=== PATIENT | female | born 1995 | race Hispanic/Latino ===

== ENCOUNTER 2019-07-23 12:33 | Emergency (ER) | payer BC ==
[2019-07-23 15:02] LABS: APPEARANCE,URINE Clear (CLEAR); BILIRUBIN,URINE Negative (NEGATIVE); COLOR,URINE Yellow (YELLOW); GLUCOSE, URINE (UA) Negative (NEGATIVE); KETONES,URINE Negative (NEGATIVE); LEUKOCYTE ESTERASE ,URINE Negative (NEGATIVE); NITRATE,URINE Negative (NEGATIVE); OCCULT BLOOD,URINE Negative (NEGATIVE); PH,URINE 5.5 (5.0-8.0); PROTEIN,URINE Negative (NEGATIVE); UROBILINOGEN,URINE 0.2 mg/dL (0.2-1.0)
[2019-07-23 15:05] LABS: HCG,QUAL RESULT NEGATIVE (NEGATIVE)
[2019-07-23] MEDS ORDERED: IBUPROFEN 600 MG TABLET ONE (16:16)
== END 2019-07-23 16:37 | disposition home or self-care (01) ==
LOC: EDH 12:33
DX: M54.2 Cervicalgia (principal); V49.49XA Driver injured in collision with other motor vehicles in traffic accident, initial encounter; Y93.89 Activity, other specified; Y92.89 Other specified places as the place of occurrence of the external cause; Y99.8 Other external cause status
CPT/HCPCS: 72040; 81003; 81025

== ENCOUNTER 2023-12-24 23:02 | Emergency (ER) | payer BC, MEDICAID ==
[~2023-12-24] VITALS: Ht 154.9 cm; Wt 68.0 kg
[2023-12-25 02:53] LABS: HCG,QUALITATIVE URINE NEGATIVE (NEGATIVE)
[2023-12-25 02:54] VITALS: BP 121/68; PULSE 66; RESP 18; O2SAT 100
[2023-12-25 03:19] LABS: APPEARANCE,URINE CLEAR (CLEAR); COLOR,URINE YELLOW (YELLOW); GLUCOSE, URINE (UA) NEGATIVE (NEGATIVE); PROTEIN,URINE NEGATIVE (NEGATIVE)
[2023-12-25 03:20] LABS: ADD UA MICROSCOPIC YES; BILIRUBIN,URINE N mg/dL (NEGATIVE); KETONES,URINE NEGATIVE (NEGATIVE); LEUKOCYTE ESTERASE ,URINE NEGATIVE Leu/uL (NEGATIVE); NITRATE,URINE NEGATIVE (NEGATIVE); OCCULT BLOOD,URINE SMALL (NEGATIVE); UROBILINOGEN,URINE 0.2 mg/dL (0.2-1.0)
[2023-12-25 04:05] LABS: BACTERIA,URINE RARE /HPF (None Seen); MUCUS,URINE RARE LPF (None Seen); SQUAMOUS EPITHELIAL CELL,UR MOD /HPF (0-2); WBC,URINE 0-1 /HPF (0-1)
== END 2023-12-25 03:44 | disposition home or self-care (01) ==
LOC: EDH 23:02
DX: R10.9 Unspecified abdominal pain (principal)
CPT/HCPCS: 81001; 81025